=== PATIENT | female | born 1995 | race Caucasian/White ===

== ENCOUNTER → 2024-08-09 10:31 | Outpatient (REF) | payer OTHER, SELFPAY ==
[2024-08-11 16:25] LABS: Quantiferon Mitogen minus NIL 6.68 IU/mL; Quantiferon NIL 0.01 IU/mL; Quantiferon TB Gold Plus Negative (Negative)
== END ==
LOC: OHS 10:31
PROVIDERS: ATTENDING PHYSICIAN Nurse Practitioner
DX: Z23 Encounter for immunization (principal)
CPT/HCPCS: 36415; 86480